=== PATIENT | male | born 1985 | race Caucasian/White ===

== ENCOUNTER 2016-11-26 15:23 | Inpatient (IN) | payer BC, OTHER ==
[~2016-11-26] VITALS: Ht 188 cm; Wt 88.9 kg
--- NOTE | 2016-11-26 18:14 | NUR ---
Intake Assessment; Patient is a 31 year old male AOX4, presented to [facility] to detoxify from ETOH. Patient appears anxious, nervous, tremors to touch with flushed face. Patient's admitting vital signs are as follows; BP 125/81, HR 100, Temperature 97.8, SPO2 98%, complains of lower back pain rated 5/10. Patient denies any allergies or any history of seizures. Educated patient regarding unit protocols and policies, patient verbalized understanding. Will continue with further assessment when patient is up on the unit.
[2016-11-26] MEDS ORDERED: LOPERAMIDE HCL 2 MG CAPSULE PO PRN ×2 (18:45)
[2016-11-26] MEDS ORDERED: LORAZEPAM 2 MG/1 ML VIAL IM PRN (18:45)
[2016-11-26] MEDS ORDERED: NICOTINE POLACRILEX 4 MG GUM-PK OF TEN BC PRN (18:45)
[2016-11-26] MEDS ORDERED: MIRALAX 17 GM POWD.PACK PO PRN (18:45)
[2016-11-26] MEDS ORDERED: NICOTINE 14 MG/24HR PATCH TD PRN (18:45)
[2016-11-26] MEDS ORDERED: LORAZEPAM 1 MG TABLET PO PRN (18:45)
[2016-11-26] MEDS ORDERED: DICYCLOMINE HCL 20 MG TABLET PO PRN (18:45)
[2016-11-26] MEDS ORDERED: ONDANSETRON 4 MG/2 ML VIAL IM PRN (18:45)
[2016-11-26] MEDS ORDERED: MAG HYDROX/AL HYDROX/SIMETH 30 ML LIQUID UDC PO PRN (18:45)
[2016-11-26] MEDS ORDERED: THIAMINE HCL 200 MG/2 ML VIAL IM ONE (18:45)
[2016-11-26] MEDS ORDERED: ONDANSETRON ODT 4 MG TAB.RAPDIS SL PRN (18:45)
[2016-11-26] MEDS ORDERED: MAGNESIUM HYDROXIDE 30 ML LIQUID UDC PO PRN (18:45)
--- NOTE | 2016-11-26 19:00 | NUR ---
End of shift note; Detailed report endorsed to night nurse for further admission assessment. Met all patient's needs.
--- NOTE | 2016-11-26 19:00 | NUR ---
ADMISSION NOTE New patient is a 31 year old male admitted to [facility] on 12/17/2016 at 1830 for medically supervised safety withdrawal from Alcohol. Patient reports NKA. Patient placed on Full Code, regular Diet, Fall and Seizures Precautions. Patient denies a history of withdrawal-induced seizures. Past Medical History: Anxiety, Depression, Bipolar Disorder, Alcohol use disorder, Chronic Tobacco Use Disorder. Past Surgical History: Tonsillectomy in 2003. Patient reports "I do not have PCP". Pre-assessment completed in intake by day shift nurse. Patient provided UDS and lab tests at this time. Patient is ambulatory with steady gate, stable, A&Ox4, speech is clear. Height: 74 in, Weight:196 lbs by standing scale. VS upon admission: T: 98.4; BP: 125/81; HR: 104; RR:18; RA O2 SAT: 96%. Patient c/o blow back pain: "5/10". CIWA 9. The patient presented with anxiety, agitation, nervousness, tremors that can be felt,, body aches, mild headache, diaphoresis, restless legs, and fatigue. Patient denies SI/HI. Upon initial assessment, patient's Respirations unlabored and even. Patient denies SOB and chest pain. Lungs Sounds are clear bilaterally. Bowel Sounds active in all x4 quadrants. Abdomen is soft and non-tender. PERRLA, brisk capillary refill, video operator equal and strong. Skin is intact warm and dry to touch. Patient reports the following Substances Use: 1 ."Alcohol PO since 2003. Patient reports "drink 4 pints of Vodka every day last month. Last used 2 pints of Vodka today, on11/26/2016 @1600. Longest sober period was 3 months since 07/2016 to 10/2016". 2. "Carmichaels PO on 11/26/2016 @1600. Patient reports it was only first time". Patient "unable recalls dosage". Patient reports smoking cigarettes :"1 pack = 20 cigarettes every day". Smoking Cessations Education provided. Patient returned his knowledge back by verbalized understanding. Treatment History: " [facility] for ninety days in the July, to September,". Home Medications Reconciliation done. Patient [facility] to his room[facility] Call Light[facility] Encourage fluids as tolerated. Encourage to attend activities groups. All needs met. Safety measures on place. Call light within reach, bed in lowest position and locked, padded rails up bilaterally rails up bilaterally. Will continue to monitor closely.
[2016-11-26 19:06] LABS: *AMPHETAMINE, URINE NEGATIVE (NEGATIVE); *BARBITURATE, URINE NEGATIVE (NEGATIVE); *CANNABINOID, URINE NEGATIVE (NEGATIVE); *COCCAINE, URINE NEGATIVE (NEGATIVE); *OPIATE, URINE POSITIVE (NEGATIVE); *PHENCYCLIDINE SCREEN,URINE NEGATIVE (NEGATIVE)
[2016-11-26 20:00] VITALS: BP 132/78
[2016-11-26] MEDS: IBUPROFEN 400 MG TABLET PO PRN (20:07)
[2016-11-26] MEDS: diphenhydrAMINE 50 MG CAPSULE PO PRN (20:07)
--- NOTE | 2016-11-26 20:07 | NUR ---
PRN MOTRIN 400 MG 1 TAB PO ADMINISTRATION Patient c/o low back pain. Patient reports pain level "6/10". PRN Motrin 400 mg 1 tab PO administrated with full glass of water as ordered. Patient tolerated well. All needs met. Safety measures on place. Call light within reach, bed in lowest position and locked, padded rails up bilaterally rails up bilaterally. Will continue to monitor closely.
--- NOTE | 2016-11-26 20:07 | NUR ---
PRN BENADRYL 50 MG 1 CAP PO ADMINISTRATION Patient c/o insomnia. PRN Benadryl 50 mg 1 capsule PO administrated with full glass of water as ordered. Patient tolerated well. All needs met. Safety measures on place. Call light within reach, bed in lowest position and locked, padded rails up bilaterally rails up bilaterally. Will continue to monitor closely.
[2016-11-26] MEDS ORDERED: LORAZEPAM 1 MG TABLET PO ONE (21:00)
[2016-11-26 21:07] LABS: BASOPHILS % (AUTO) 0.3 % (0.0-2.0); EOSINOPHILS % (AUTO) 0.1 % (0.0-7.0); HEMATOCRIT 42.5 % (40-50); LYMPHOCYTES # (AUTO) 1.7 K/UL (0.8-4.8); LYMPHOCYTES % (AUTO) 15.4 % (20.5-51.5); MEAN CORPUSCULAR HEMOGLOBIN 30.4 UUG (27.0-31.0); MEAN CORPUSCULAR HGB CONC 35 g/dL (32.0-37.0); MEAN CORPUSCULAR VOLUME 86.3 FL (82.0-92.0); MONOCYTES # (AUTO) 0.4 K/UL (0.1-1.30); MONOCYTES % (AUTO) 3.7 % (0.0-11.0); NEUTROPHILS % (AUTO) 80.5 % (38.5-71.5); PLATELET COUNT (AUTO) 237 K/UL (150-450); RED BLOOD CELL COUNT(AUTO) 4.92 MIL/UL (4.7-6.1); WHITE BLOOD COUNT (AUTO) 11.1 K/UL (4.0-11.2)
--- NOTE | 2016-11-26 21:07 | NUR ---
RE-ASSESSMENT Patient is sleeping. Respirations even and unlabored. RR 14. PRN Benadryl 50 mg 1 cap PO administrated @2006 for insomnia was effective. All needs met. Safety measures on place. Call light within reach, bed in lowest position and locked, padded rails up bilaterally rails up bilaterally. Will continue to monitor closely.
--- NOTE | 2016-11-26 21:07 | NUR ---
RE-ASSESSMENT Patient is sleeping. Respirations even and unlabored. RR 14. PRN Motrin 400 mg 1 tab PO administrated to patient @2006 for low back pain was effective. All needs met. Safety measures on place. Call light within reach, bed in lowest position and locked, padded rails up bilaterally rails up bilaterally. Will continue to monitor closely.
[2016-11-26 21:13] LABS: BILIRUBIN,TOTAL 0.3 mg/dL (0.2-1.0); CREATININE 1.1 mg/dL (0.6-1.3); MAGNESIUM 1.9 mg/dL (1.8-2.4); POTASSIUM 3.9 mmol/L (3.5-5.1); TOTAL PROTEIN, SERUM 7.3 g/dL (6.4-8.2)
[2016-11-26] MEDS ORDERED: HYDR-3326 PO (21:59)
[2016-11-26] MEDS ORDERED: BUPR300T52 PO ×2 (21:59)
[2016-11-27] VITALS: BP 119/72
[2016-11-27 04:00] VITALS: BP 115/80
--- NOTE | 2016-11-27 06:48 | NUR ---
END OF SHIFT New patient is a 31 year old male admitted to [facility] on 12/17/2016 for Alcohol dependence. Patient reports NKA. Patient is on Full Code, Regular Diet, Fall and Seizures Precautions. Patient denies a history of withdrawal-induced seizures. PMH: Anxiety, Depression, Bipolar Disorder, Alcohol use disorder, Chronic Tobacco Use Disorder. Past Surgical History: Tonsillectomy in 2003. Last VS @0400: T: 98.0; BP: 115/80; HR: 86; RR:12; RA O2 SAT: 99%. Pain level: "0/10". Patient denies SI/HI. Respirations unlabored and even. Abdomen is soft and non-tender. Skin is intact, warm and dry to touch. CIWA taken when patient's alert during the night. Last CIWA 4 @0400. Patient denies SI/HI. PRN Motrin 400 mg 1 tab PO administrated to patient @2006 for low back pain, and PRN Benadryl 50 mg 1 cap PO administrated @2006 for insomnia were effective. Patient slept 9 hours, intake 582 ml, voided x2. Encourage fluids as tolerated. All needs met. Safety measures on place. Call light within reach, bed in lowest position and locked, padded rails up bilaterally rails up bilaterally. Patient endorsed by day shift nurse.
--- NOTE | 2016-11-27 07:30 | NUR ---
START OF SHIFT Rcvd endorsement from ongoing nurse, client is in room, he is a/ox4, he presents with anxious mood, flat affect, tremors felt, not observed, and flushed face. He reports anxiety, difficulty sleeping, restless legs, decreased appetite, fatigue, and chills. Encourage client to attend group therapy for skills to maintain sober, he verbalized understanding and said, "I really don't feel up to it, but tomorrow I'll try." Encourage client to increase PO fluid intake as tolerated to facilitate detox. Client is a 31 yo male, admitted to [facility] for withdrawal from alcohol. He is on 5 day Ativan taper, first dose today @ 0900. Last CIWA 4 @ 0400. PRN Motrin for low back pain, Benadryl for inability to sleep, noted effective, client slept 9 hrs. Client reported NKA, full code, regular diet. Client denies a hx of withdrawal-induced seizure. Side rails x 2 up/padded, bed in lowest/lock position. Call light within reach.
[2016-11-27 08:00] VITALS: BP 126/69
[2016-11-27] MEDS: LORAZEPAM 1 MG TABLET PO SCH ×4 (08:33→20:17)
[2016-11-27] MEDS: FOLIC ACID 1 MG TABLET PO SCH (08:33)
[2016-11-27] MEDS: IBUPROFEN 400 MG TABLET PO PRN ×2 (08:33→20:17)
[2016-11-27] MEDS: MULTIVITAMINS,THERAPEUTIC TABLET PO SCH (08:33)
[2016-11-27] MEDS: THIAMINE HCL 100 MG TABLET PO SCH (08:33)
--- NOTE | 2016-11-27 08:33 | NUR ---
TB test administered ID to left forearm, client tolerated well.
[2016-11-27] MEDS ORDERED: TUBERCULIN,PURIF.PROT.DERIV. 5 TU/0.1 ML TEST ID ONE (09:00)
[2016-11-27] MEDS ORDERED: ARIP15TA3 PO (12:12)
--- NOTE | 2016-11-27 12:17 | NUR ---
Nursing note Mom called inquiring if client is taking his Abilify 15mg daily for dual diagnosis bipolar disorder and schizophrenia, she said, "He stopped taking it because of side effects like gain weight." Client confirmed that he used to take at home Abilify 15mg PO daily. Dr. Johnston made aware and he stated "I will talk with the client."
[2016-11-27 12:55] VITALS: BP 133/82
--- NOTE | 2016-11-27 13:45 | NUR ---
Activity Group Notes: Client did not attend.
[2016-11-27] MEDS: buPROPion XL 150 MG TAB.SR.24H PO SCH (13:50)
[2016-11-27 16:55] VITALS: BP 123/76
--- NOTE | 2016-11-27 18:51 | NUR ---
END OF SHIFT Endorsed client to incoming nurse, Client is a 31 yo male, admitted to [facility] for withdrawal from alcohol. He is on 5 day Ativan taper, tolerating well with no ASE, and management of withdrawal symptoms, such as anxiety, tremors, irritability. Last CIWA 8 @ 1600. Client was not compliant with group therapy. Client consumes 100% of meals, plus snacks. Adequate fluid PO intake 3113mL. Client reported NKA, full code, regular diet. Client denies a hx of withdrawal-induced seizure. Side rails x 2 up/padded, bed in lowest/lock position. Call light within reach.
--- NOTE | 2016-11-27 18:51 | NUR ---
START OF SHIFT NOTE Patient is a 31 year old male admitted to [facility] on 12/17/2016 for Alcohol dependence. Patient reports NKA. Patient is on Full Code, Regular Diet, Fall and Seizures Precautions. Patient denies a history of withdrawal-induced seizures. PMH: Anxiety, Depression, Bipolar Disorder, Alcohol use disorder, Chronic Tobacco Use Disorder. Past Surgical History: Tonsillectomy in 2003. Upon endorsement patient is in his room alert and oriented x4, with stable gate. Speech is clear and soft. Patient is cooperative. [facility]. VS @0400: T: 98.4; BP: 136/84; HR: 96; RR:14; RA O2 SAT: 96%. Patient reports low back pain level: "5/10". Patient denies SI/HI. Respirations unlabored and even. Patient denies SOB and chest pain. Lungs Sounds are clear bilaterally. Bowel Sounds active in all x4 quadrants. Abdomen is soft and non-tender. PERRLA, brisk capillary refill, senior automation engineer equal and strong. Skin is intact, warm and dry to touch. Encourage fluids as tolerated. Encourage to attend activities groups. All needs met. Safety measures on place. Call light within reach, bed in lowest position and locked, padded rails up bilaterally rails up bilaterally. Patient endorsed by day shift nurse. Report received. Will continue to monitor closely. Addendum: 11/28/16 at 1935 by KT MARIE RN VS @1600.
[2016-11-27 20:00] VITALS: BP 136/84
[2016-11-27] MEDS: diphenhydrAMINE 50 MG CAPSULE PO PRN (20:17)
--- NOTE | 2016-11-27 20:17 | NUR ---
PRN MOTRIN 400 MG 1 TAB PO AND PRN BENADRYL 1 CAP PO ADMINISTRATION Patient c/o low back pain and insomnia. Patient reports pain level "5/10". PRN Motrin 400 mg 1 tab PO for pain and PRN Benadryl 50 mg 1 cap PO for insomnia administrated with full glass of water as ordered. Patient tolerated well. All needs met. Patient has 1:1 sitter at bedside for safety/unstable gait. Call light within reach, bed in lowest position and locked, padded rails up bilaterally rails up bilaterally. Will continue to monitor closely.
[2016-11-27] MEDS ORDERED: ARIPIPRAZOLE 5 MG TABLET PO SCH (21:00)
--- NOTE | 2016-11-27 21:17 | NUR ---
RE-ASSESSMENT Patient is sleeping. Respirations even and unlabored. RR 14. PRN Motrin 400 mg 1 tab PO for pain, and PRN Benadryl 50 mg 1 cap PO for insomnia administrated to patient @2017 were effective. All needs met. Safety measures on place. Call light within reach, bed in lowest position and locked, padded rails up bilaterally rails up bilaterally. Will continue to monitor closely.
[2016-11-28] VITALS (8 sets, daily range): BP systolic 106–142; BP diastolic 56–94
[2016-11-28] MEDS: LORAZEPAM 1 MG TABLET PO PRN ×2 (00:01→02:07)
--- NOTE | 2016-11-28 00:01 | NUR ---
PRN ATIVAN 1MG 1 TAB PO ADMINISTRATION Patient c/o increased anxiety. Patient's assesses. PRN Ativan 1 mg 1 tab PO for CIWA 7 administrated as ordered. Patient tolerated well. All needs met. Safety measures on place. Call light within reach, bed in lowest position and locked, padded rails up bilaterally rails up bilaterally. Will continue to monitor closely.
--- NOTE | 2016-11-28 01:01 | NUR ---
RE-ASSESSMENT JOSE 7. PRN Ativan 1 mg PO administrated @0001 was not effective. All needs met. Safety measures on place. Call light within reach, bed in lowest position and locked, padded rails up bilaterally rails up bilaterally. Will continue to monitor closely.
[2016-11-28] MEDS: HYDROXYZINE PAMOATE 25 MG CAPSULE PO PRN ×2 (01:08→08:07)
[2016-11-28] MEDS ORDERED: HYDROXYZINE PAMOATE 25 MG CAPSULE ONE (01:08)
--- NOTE | 2016-11-28 01:08 | NUR ---
PRN VISTARIL 25 MG 1 CAP PO ADMINISTRATION Patient c/o anxiety. CIWA 7. PRN Vistaril PO was discussed. Patient was educated for actions, aide effects, and adverse reactions of Vistaril PO. Patient returned knowledge back by verbalized understanding. PRN Vistaril 25 mg 1 cap PO for anxiety administrated with full glass of water as ordered. Patient tolerated well. All needs met. Safety measures on place. Call light within reach, bed in lowest position and locked, padded rails up bilaterally rails up bilaterally. Will continue to monitor closely.
--- NOTE | 2016-11-28 02:08 | NUR ---
RE-ASSESSMENT Patient c/o increased anxiety. CIWA 8. PRN Vistaril was non effective. All needs met. Safety measures on place. Call light within reach, bed in lowest position and locked, padded rails up bilaterally rails up bilaterally. Will continue to monitor closely.
--- NOTE | 2016-11-28 02:08 | NUR ---
PRN ATIVAN 1MG 1 TAB PO ADMINISTRATION Patient c/o increased anxiety. Patient's assesses. PRN Ativan 1 mg 1 tab PO for CIWA 8 administrated as ordered. Patient tolerated well. All needs met. Safety measures on place. Call light within reach, bed in lowest position and locked, padded rails up bilaterally rails up bilaterally. Will continue to monitor closely. Addendum: 11/28/16 at 0331 by KT MARIE RN PRN Ativan 1 mg 1 tab PO administrated for anxiety, for CIWA 7 @5102.
--- NOTE | 2016-11-28 03:08 | NUR ---
RE-ASSESSMENT PRN Ativan was effective. CIWA decreased from 8 to 4. All needs met. Safety measures on place. Call light within reach, bed in lowest position and locked, padded rails up bilaterally rails up bilaterally. Will continue to monitor closely.
--- NOTE | 2016-11-28 03:52 | NUR ---
PRN BENTYL 20 MG 1 TAB PO ADMINISTRATION. Patient c/o abdominal spasm and asked aid. PRN Bentyl 20 mg 1 tab PO for abdominal spasm administrated as ordered with full glass of water. Patient tolerated well. All needs met. Safety measures on place. Call light within reach, bed in lowest position and locked, padded rails up bilaterally rails up bilaterally. Will continue to monitor closely.
--- NOTE | 2016-11-28 04:52 | NUR ---
RE-ASSESSMENT Patient denies abdominal spasm at this time. PRN Bentyl 20 mg PO administrated @0352 was effective. All needs met. Safety measures on place. Call light within reach, bed in lowest position and locked, padded rails up bilaterally rails up bilaterally. Will continue to monitor closely.
--- NOTE | 2016-11-28 06:45 | NUR ---
END OF SHIFT NOTE: Patient is a 31 year old male admitted to [facility] on 12/17/2016 for Alcohol dependence. Patient reports NKA. Patient is on Full Code, Regular Diet, Fall and Seizures Precautions. Patient denies a history of withdrawal-induced seizures. PMH: Anxiety, Depression, Bipolar Disorder, Alcohol use disorder, Chronic Tobacco Use Disorder. Past Surgical History: Tonsillectomy in 2003. Last CIWA 4 @0400. CIWA taken when patient's alert during the night. Last VS @0500: T: 98.4; BP: 120/74; HR:94; RR:18; RA O2 SAT: 97%. Pain level: "0/10". Patient denies SI/HI. Respirations unlabored and even. Abdomen is soft and non-tender. Skin is intact, warm and dry to touch. Patient denies SI/HI. PRN Motrin 400 mg 1 tab PO administrated to patient @2017 for low back pain, and PRN Benadryl 50 mg 1 cap PO administrated @2017 for insomnia were effective. PRN Ativan 1 mg 1 tab PO administrated for anxiety for CIWA 7 @0001, and PRN Vistaril 25 mg 1 cap PO administrated for anxiety @0108 were non-effective. PRN Ativan 1 mg 1 tab PO administrated for anxiety, for CIWA 7 @0207 and PRN Bentyl 20 mg 1 tab PO for abdominal spasm @ 0352 were effective. Patient slept 1 hour 30 minutes, intake 796 ml, voided x1,. Encourage fluids as tolerated. All needs met. Safety measures on place. Call light within reach, bed in lowest position and locked, padded rails up bilaterally rails up bilaterally. Patient endorsed by day shift nurse.
--- NOTE | 2016-11-28 07:30 | NUR ---
START OF SHIFT Pt 31 y/o male admitted for etoh dependence. Pt received walking around hallway. Pt alert and oriented to name, place, and time. Perrla. Skin warm and slightly moist to touch. Respirations even and unlabored. Pt appears slightly disheveled. Pt anxious this morning, observed pacing and with pressured speech this morning. Also noted that pt was jumping topics quickly during conversation. It was reported that pt slept for 1 hour last night. Bed on lowest position with side rails x2 up for safety. Call light within reach. No distress noted at this time.
[2016-11-28 08:06] LABS: HEPATITIS B SURFACE AG Negative (Negative)
[2016-11-28] MEDS: MULTIVITAMINS,THERAPEUTIC TABLET PO SCH (08:07)
[2016-11-28] MEDS: FOLIC ACID 1 MG TABLET PO SCH (08:07)
[2016-11-28] MEDS: CLONIDINE HCL 0.1 MG TABLET PO PRN (08:07)
[2016-11-28] MEDS: LORAZEPAM 1 MG TABLET PO SCH ×3 (08:07→20:36)
[2016-11-28] MEDS: THIAMINE HCL 100 MG TABLET PO SCH (08:07)
[2016-11-28] MEDS: IBUPROFEN 400 MG TABLET PO PRN (08:07)
[2016-11-28] MEDS: buPROPion XL 150 MG TAB.SR.24H PO SCH (08:08)
--- NOTE | 2016-11-28 08:12 | NUR ---
PRN Pt with nr=[id number]. Pt observed pacing in room and with pressured speech noted. Catapres po prn per MD orders noted and carried out.
--- NOTE | 2016-11-28 08:12 | NUR ---
JAZIEL PATTERSON Pt observed walking around the unit in the hallways. No distress noted at this time. Pt also states pain 04/04. xo=075/78
--- NOTE | 2016-11-28 08:13 | NUR ---
PRN Pt observed pacing in room and with pressured speech noted. Vistaril po prn per MD order given and tolerated well.
--- NOTE | 2016-11-28 08:14 | NUR ---
PRN Pt with c/o lower back pain. Motrin po prn per MD order given and tolerated well.
[2016-11-28] MEDS: GABAPENTIN 300 MG CAPSULE PO SCH ×2 (14:04→20:36)
[2016-11-28] MEDS ORDERED: LORAZEPAM 1 MG TABLET PO PRN ×2 (15:00)
--- NOTE | 2016-11-28 19:07 | NUR ---
START OF SHIFT NOTE Patient is a 31 year old male presenting to [facility] for Alcohol dependence. Patient continue Ativan Taper with tolerated well without ASE. Patient reports NKA. Patient is on Full Code, Regular Diet, Fall and Seizures Precautions. Patient denies a history of withdrawal-induced seizures. Patient received PRN Medications during day per report of outgoing day shift nurse: PRN Clonidine PO 0.1 mg 1 tab @0807, PRN Vistaril 25 mg 1 tab PO for anxiety@0807, and PRN Motrin PO 400 mg 1 tab for low back pain @0807. Patient remains compliant with treatment, medications, and diet regime. Upon endorsement patient is in his room alert and oriented x4, with stable gate. Speech is clear and soft. Patient is cooperative. Patient denies SI/HI. CIWA 7. Respirations unlabored and even. Patient denies SOB and chest pain. Lungs Sounds are clear bilaterally. Bowel Sounds active in all x4 quadrants. Abdomen is soft and non-tender. PERRLA, brisk capillary refill, commercial housekeeper equal and strong. Skin is intact, warm and dry to touch. Encourage fluids as tolerated. Encourage to attend activities groups. All needs met. Safety measures on place. Call light within reach, bed in lowest position and locked, padded rails up bilaterally rails up bilaterally. Patient endorsed by day shift nurse. Report received. Will continue to monitor closely.
--- NOTE | 2016-11-28 19:07 | NUR ---
END OF SHIFT Pt 31 y/o male admitted for etoh dependence. Pt alert and oriented to name, place, and time. Perrla. Skin warm and slightly moist to touch. Respirations even and unlabored. Pt appears slightly disheveled. Pt with periods of anxiety this morning. Pt did not attend group activity. Pt was seen by MD today. Pt medication compliant and tolerated well. No ASE noted. Bed on lowest position with side rails x2 up for safety. Call light within reach. No distress noted at this time.
[2016-11-28] MEDS: QUETIAPINE FUMARATE 200 MG TABLET PO SCH (20:36)
[2016-11-29] VITALS: BP 113/64
[2016-11-29 04:00] VITALS: BP 121/70
--- NOTE | 2016-11-29 04:08 | NUR ---
PRN ATIVAN 1MG 1 TAB PO ADMINISTRATION Patient c/o increased anxiety. PRN Ativan 1 mg 1 tab PO for CIWA 8 administrated as ordered. Patient tolerated well. All needs met. Safety measures on place. Call light within reach, bed in lowest position and locked, padded rails up bilaterally rails up bilaterally. Will continue to monitor closely.
--- NOTE | 2016-11-29 05:08 | NUR ---
RE-ASSESSMENT Patient is sleeping. Respirations even and unlabored. RR 15. PRN Ativan 1 mg 1 tab PO administrated to patient @0408 was effective. All needs met. Safety measures on place. Call light within reach, bed in lowest position and locked, padded rails up bilaterally rails up bilaterally. Will continue to monitor closely.
--- NOTE | 2016-11-29 06:57 | NUR ---
END OF SHIFT NOTE: Patient is a 31 year old male presenting to [facility] for Alcohol dependence. Patient continue Ativan Taper, tolerated without ASE. Patient reports NKA. Patient is on Full Code, Regular Diet, Fall and Seizures Precautions. Patient denies a history of withdrawal-induced seizures. PMH: Anxiety, Depression, Bipolar Disorder, Alcohol use disorder, Chronic Tobacco Use Disorder. Past Surgical History: Tonsillectomy in 2003. Last CIWA 4 @0400. CIWA taken when patient's alert during the night. Last VS @0500: T: 98.4; BP: 120/74; HR:94; RR:18; RA O2 SAT: 97%. Pain level: "0/10". Patient denies SI/HI. Respirations unlabored and even. Abdomen is soft and non-tender. Skin is intact, warm and dry to touch. Patient denies SI/HI. PRN Ativan 1 mg 1 tab PO administrated @ 0408 for CIWA 8, and was effective. Patient slept 9 hour 45 minutes, intake 1,000 ml, voided x2. Encourage fluids as tolerated. All needs met. Safety measures on place. Call light within reach, bed in lowest position and locked, padded rails up bilaterally rails up bilaterally. Report given. Patient endorsed to day shift nurse in stable condition.
--- NOTE | 2016-11-29 07:30 | NUR ---
START OF SHIFT Pt 31 y/o male admitted for etoh dependence. Pt received in room on bed with eyes closed resting, but easily arousable to name. Pt alert and oriented to name, place, and time. Perrla. Skin warm and slightly moist to touch. Respirations even and unlabored. It was reported that pt slept for 9 hour last night. Bed on lowest position with side rails x2 up for safety. Call light within reach. No distress noted at this time.
[2016-11-29 08:14] VITALS: BP 131/78
[2016-11-29] MEDS: buPROPion XL 150 MG TAB.SR.24H PO SCH (08:30)
[2016-11-29] MEDS: GABAPENTIN 300 MG CAPSULE PO SCH ×3 (08:31→20:13)
[2016-11-29] MEDS: LORAZEPAM 1 MG TABLET PO SCH ×4 (08:31→20:13)
[2016-11-29] MEDS: FOLIC ACID 1 MG TABLET PO SCH (08:31)
[2016-11-29] MEDS: THIAMINE HCL 100 MG TABLET PO SCH (08:31)
[2016-11-29] MEDS: MULTIVITAMINS,THERAPEUTIC TABLET PO SCH (08:31)
[2016-11-29] MEDS: CLONIDINE HCL 0.1 MG TABLET PO PRN ×2 (12:12→18:53)
[2016-11-29] MEDS: IBUPROFEN 400 MG TABLET PO PRN ×2 (12:12→21:14)
[2016-11-29] MEDS: HYDROXYZINE PAMOATE 25 MG CAPSULE PO PRN ×2 (12:12→18:52)
--- NOTE | 2016-11-29 12:16 | NUR ---
PRN Pt with pressured speech noted and appears restless. Vistaril po prn per MD order given and tolerated well.
--- NOTE | 2016-11-29 12:16 | NUR ---
PRN Pt states has back pain 10/02. Motrin po prn per MD order given and tolerated well.
--- NOTE | 2016-11-29 12:17 | NUR ---
PRN Pt still restless. IN=[id number]. Catapres po prn per MD order given and tolerated well.
[2016-11-29 12:30] VITALS: BP 123/92
--- NOTE | 2016-11-29 13:17 | NUR ---
JAZIEL PATTERSON Pt observed in room on bed with eyes closed resting, but easily arousable to name. No distress noted at this time.
--- NOTE | 2016-11-29 13:17 | NUR ---
PRN EVAL Pt states pain 5/10.
[2016-11-29] MEDS: METHOCARBAMOL 750 MG TABLET PO PRN (14:40)
--- NOTE | 2016-11-29 14:46 | NUR ---
PRN Pt with c/o back aches 10/02. Robaxin po prn per MD order given and tolerated well.
--- NOTE | 2016-11-29 15:46 | NUR ---
PRN EVAL Pt observed in bed watching television. Pt states pain 10.
[2016-11-29 16:00] VITALS: BP 133/84
--- NOTE | 2016-11-29 17:05 | NUR ---
therapist encouraged client to attend group today. Client agreed to come to group
[2016-11-29] MEDS: GUAIFENESIN/DEXTROMETHORPHAN 5 ML UDC PO PRN (17:24)
--- NOTE | 2016-11-29 17:24 | NUR ---
PRN Pt with c/o cough. Robitussin po prn per MD order given and tolerated well.
--- NOTE | 2016-11-29 18:24 | NUR ---
PRN EVAL Pt observed in room. No cough noted.
--- NOTE | 2016-11-29 18:26 | NUR ---
END OF SHIFT Pt 31 y/o male admitted for etoh dependence. Pt alert and oriented to name, place, and time. Perrla. Skin warm and slightly moist to touch. Respirations even and unlabored. Pt with periods of anxiety this morning. Pt observed mostly isolative to room today. Pt did not attend group activity. Pt was seen by MD today. Pt medication compliant and tolerated well. No ASE noted. Bed on lowest position with side rails x2 up for safety. Call light within reach. No distress noted at this time.
--- NOTE | 2016-11-29 18:58 | NUR ---
PRN Pt states feels anxious. Pressured speech noted. Vistaril po prn per MD order given and tolerated well.
--- NOTE | 2016-11-29 18:58 | NUR ---
PRN Pt states feels nauseous. Zofran odt prn per MD order given and tolerated well.
--- NOTE | 2016-11-29 18:59 | NUR ---
PRN Pt states feels very anxious. xo=060/92. Catapres po prn per MD order given and tolerated well.
--- NOTE | 2016-11-29 19:30 | NUR ---
START OF SHIFT Patient is a 31-year-old male admitted on 11/26/16 for ETOH dependence. Patient reported drinking 4 pints of vodka every day for the last month. Patient reported last drinking 2 pints at 1600 on 11/26/16 prior to admission. Past medical history includes anxiety, depression, and bipolar disorder. Patient has history of alcohol dependence and tobacco chronic use disorder. Patient is FULL code, NKA and on regular diet. Patient is currently on a 5 day Ativan taper, tolerating well. Upon assessment, patient is awake and oriented x4, PERRLA, skin intact and warm to touch. Patient reports some tingling of lower extremities, mild nausea, mild headache, and lower back pain. Patients respirations are even and unlabored. Patient is on fall and seizure precautions, with no history of seizure. Bed in lowest position, call light within reach. Will continue to monitor.
--- NOTE | 2016-11-29 19:53 | NUR ---
PRN REASSESSMENT PRN Clonidine, Vistaril and Zofran reassessment. PRN medications partially effective. Patient states that nausea has slightly improved. Comfort measures in place. Needs met. Will continue monitor. Addendum: 11/29/16 at 2054 by JUDY NUNEZ LVN This is reassessment for PRN Clonidine, Vistaril and Zofran that was administered during day shift.
[2016-11-29 20:08] VITALS: BP 134/78
[2016-11-29] MEDS: QUETIAPINE FUMARATE 200 MG TABLET PO SCH (20:14)
--- NOTE | 2016-11-29 21:14 | NUR ---
PRN MOTRIN Patient complained of lower back pain 5/10. PRN Motrin given PO. Will continue to monitor, will reassess for effectiveness within 1 hour.
--- NOTE | 2016-11-29 22:14 | NUR ---
PRN MOTRIN REASSESSMENT PRN Motrin effective, patient states lower back pain decrease to 2/10 from 5/10. Patient needs are met, pt resting in bed; respirations even and unlabored. Safety measures in place, call light within reach. Will continue to monitor.
[2016-11-30] VITALS: BP 119/67
[2016-11-30 04:02] VITALS: BP 117/73
--- NOTE | 2016-11-30 04:02 | NUR ---
CIWA DEFERRED CIWA deferred, patient is asleep, unable to score. To assess while patient is awake as ordered. Safety measures in place, will continue to monitor.
--- NOTE | 2016-11-30 07:12 | NUR ---
END OF SHIFT Patient is a 31-year-old male admitted on 11/26/16 for ETOH dependence. Past medical history includes anxiety, depression, and bipolar disorder. Patient has history of alcohol dependence and tobacco chronic use disorder. Patient is FULL code, NKA and on regular diet. Patient is currently on a 5 day Ativan taper, tolerating well. Last CIWA score was PRN Motrin 400mg was given PO at 2114 for lower back pain, 5/10 as reported by patient; effective. Upon reassessment, patient reported 2/10 for lower back pain. Patient slept total of 5.5hrs, intake 1946mL, void x2, stool x1. Patients respirations are even and unlabored. Patient is on fall and seizure precautions, with no history of seizure. Bed in lowest position, call light within reach. Will endorse to day shift.
--- NOTE | 2016-11-30 07:13 | NUR ---
Start of Shift Notes; Received patient in his room. Alert and oriented x 4. Verbally responsive. Able to make needs known. Respirations even and unlabored. No SOB noted. Skin warm and dry to touch. Abdomen soft and non-distended. BS (+) in all 4 quadrants. No complains of N/V/D or constipation noted. Voids independently. Ambulatory ad jean-paul with steady gait. Patient is a 31 year old male admitted for ETOH dependence who was placed on a 5-day Ativan taper as ordered. No adverse reactions noted. Has past medical hx of anxiety, depression and bipolar disorder. NKA. FULL CODE. Regular diet. On fall and seizure precautions. . Educated patient on his current plan of care for the day and his medication regimen. Encouraged oral fluid intake and encouraged group participation to learn new skills to prevent relapse. Will continue to monitor closely.
[2016-11-30 08:00] VITALS: BP 117/69
[2016-11-30] MEDS: LORAZEPAM 1 MG TABLET PO SCH ×2 (08:59→20:36)
[2016-11-30] MEDS: FOLIC ACID 1 MG TABLET PO SCH (08:59)
[2016-11-30] MEDS: buPROPion XL 150 MG TAB.SR.24H PO SCH (08:59)
[2016-11-30] MEDS: GABAPENTIN 300 MG CAPSULE PO SCH ×3 (08:59→20:37)
[2016-11-30] MEDS: THIAMINE HCL 100 MG TABLET PO SCH (08:59)
[2016-11-30] MEDS: BENZOCAINE/MENTH/CETYLPYRD LOZENGE MM PRN (08:59)
[2016-11-30] MEDS: HYDROXYZINE PAMOATE 25 MG CAPSULE PO PRN (08:59)
[2016-11-30] MEDS: MULTIVITAMINS,THERAPEUTIC TABLET PO SCH (08:59)
--- NOTE | 2016-11-30 09:00 | NUR ---
Vistaril 25 mg PO/Cepacol given: Patient noted with complain of anxiety. Pulse 92 while resting. Noted with mild sweats. Also complains of sore throat. Non-pharmacological interventions provided but ineffective. Medicated patient with Vistaril 25 mg PO and Cepacol sore throat as ordered. Will monitor for effectiveness.
--- NOTE | 2016-11-30 10:00 | NUR ---
Re-assessment: Per patient, PRN Vistaril was mildly effective in relieving anxiety and Cepacol was effective in relieving sore throat.
[2016-11-30 12:00] VITALS: BP 117/73
[2016-11-30] MEDS ORDERED: HYDROXYZINE PAMOATE 25 MG CAPSULE PO PRN (13:45)
[2016-11-30] MEDS: IBUPROFEN 400 MG TABLET PO PRN (14:12)
--- NOTE | 2016-11-30 14:12 | NUR ---
Motrin 400 mg PO given: Patient noted with complain of low back pain 06/02. Non-pharmacological interventions were provided but ineffective. Medicated patient with Motrin 400 mg PO as ordered. Will monitor for effectiveness.
--- NOTE | 2016-11-30 15:12 | NUR ---
Re-assessment: Per patient, PRN Motrin 400 mg PO was mildy effective in reducing low back pain. PL 03/04.
--- NOTE | 2016-11-30 15:43 | NUR ---
Endorsed care: Endorsed care to receiving nurse at this time. All pertinent information discussed.
[2016-11-30 16:00] VITALS: BP 125/77
--- NOTE | 2016-11-30 17:56 | NUR ---
End of Shift Notes: Patient continues to be on 5-day Ativan taper as ordered. No adverse reactions noted. Taper tolerated well. VS monitored closely. No significant abnormalities noted. Withdrawal symptoms were closely monitored. Per patient, Ativan has been helping him with his withdrawal symptoms. Noted with episodes of asking for more medications, specifically Ativan. Education provided and verbalized fair understanding. PRN Vistaril given at 0900 for complain of nervousness and anxiety and PRN Cepacol given for complain of mild sore throat. At 1412, patient complained of 4/10 low back pain. Medicated patient with Motrin 400 mg PO with help. Last CIWA 6. Compliant with care and treatment. Requires encouragement to attend group and participate in activities. All needs met and attended. Will continue to monitor the patient and endorse to incoming nurse for continuity of care.
[2016-11-30 20:00] VITALS: BP 135/89
--- NOTE | 2016-11-30 20:00 | NUR ---
Start of Shift Pt is a 31 year old male admitted for ETOH dependence, placed on 5 day Ativan taper. Pt reported consuming Vodka 4 pints/daily. Pt also reported using [place] PO 1 tab once on 11/26/16. PMH: Anxiety, Depression, Bipolar Disorder, Alcohol Dependence and tobacco chronic use disorder. NKA, regular diet, fall/seizure precautions and full code. Upon assessment, pt presents with anxiety, tremors felt upon touch, reports feeling mild chills and body aches, skin is clammy, respirations even/unlabored, denies SOB/chest pain, denies n/v/d, medications due. Safety measures in place, call light within reach, side rails up x2, bed locked and in low position. Will continue to monitor.
[2016-11-30] MEDS: QUETIAPINE FUMARATE 200 MG TABLET PO SCH (20:44)
[2016-12-01] VITALS: BP 105/81
--- NOTE | 2016-12-01 | NUR ---
Vital Signs BP 105/81, pulse 91, resp 18, SpO2 95% room air, temp 98, no pain CIWA deferred due to pt sleeping, to assess while pt is awake as ordered. Safety measures in place. Will continue to monitor.
[2016-12-01 04:00] VITALS: BP 121/85
--- NOTE | 2016-12-01 04:00 | NUR ---
Vital Signs BP 121/85, pulse 82, resp 16, SpO2 99% room air, temp 97.9, no pain CIWA deferred due to pt sleeping, to assess while pt is awake as ordered. Safety measures in place. Will continue to monitor.
--- NOTE | 2016-12-01 07:00 | NUR ---
End of Shift Pt is a 31 year old male admitted for ETOH dependence, placed on 5 day Ativan taper. Pt reported consuming Vodka 4 pints/daily. Pt also reported using [place] PO 1 tab once on 11/26/16. PMH: Anxiety, Depression, Bipolar Disorder, Alcohol Dependence and tobacco chronic use disorder. NKA, regular diet, fall/seizure precautions and full code. During shift, pt presented with anxiety, tremors felt upon touch, reported feeling mild chills and body aches, skin clammy - scheduled taper medications administered, effective in monitoring s/s of withdrawal, CIWA 5. No PRN medications administered during shift. Pt slept for 7 hours, intake of 2500 ml PO, voids x3 and stool x2. Safety measures in place, call light within reach, side rails up x2, bed locked and in low position. Will continue to monitor.
--- NOTE | 2016-12-01 07:53 | NUR ---
START OF SHIFT NOTE: Received report from shift supervisor rn nurse. Pt is a 31 year old male admitted 11-26-16 for ETOH dependence, placed on 5 day Ativan taper. Tolerating well. Pt is alert and oriented X4. Color good, skin warm and dry. Respirations even and unlabored. Resting in bed. Safety precautions observed. Call light within reach. Will continue to monitor.
[2016-12-01 08:00] VITALS: BP 120/68
[2016-12-01] MEDS: THIAMINE HCL 100 MG TABLET PO SCH (09:00)
[2016-12-01] MEDS ORDERED: LORAZEPAM 1 MG TABLET PO SCH (09:00)
[2016-12-01] MEDS: GABAPENTIN 300 MG CAPSULE PO SCH (09:09)
[2016-12-01] MEDS: buPROPion XL 150 MG TAB.SR.24H PO SCH (09:09)
[2016-12-01] MEDS: MULTIVITAMINS,THERAPEUTIC TABLET PO SCH (09:09)
[2016-12-01] MEDS: FOLIC ACID 1 MG TABLET PO SCH (09:09)
--- NOTE | 2016-12-01 11:00 | NUR ---
Pt c/o sore throat
[2016-12-01 12:24] VITALS: BP 123/76
--- NOTE | 2016-12-01 13:32 | NUR ---
CIWA 9 still with major anxiety and fine tremors. Addendum: 12/01/16 at 1333 by CHRIS TRAVIS RN Dr. Elise mcneal
[2016-12-01] MEDS ORDERED: LORAZEPAM 1 MG TABLET PO ONE (13:45)
[2016-12-01] MEDS: GABAPENTIN 400 MG CAPSULE PO SCH ×2 (14:01→20:36)
[2016-12-01] MEDS: BENZOCAINE/MENTH/CETYLPYRD LOZENGE MM PRN (14:02)
--- NOTE | 2016-12-01 14:05 | NUR ---
Ativan 1mg po X1 given as ordered
--- NOTE | 2016-12-01 15:00 | NUR ---
Pt feels improved after Ativan X1
[2016-12-01] MEDS: ACETAMINOPHEN 325 MG TABLET PO PRN (16:42)
--- NOTE | 2016-12-01 16:45 | NUR ---
Pt c/o headache. Tylenol 650mg po prn given
--- NOTE | 2016-12-01 17:45 | NUR ---
Pt states headache improved after Tylenol.
[2016-12-01 17:56] VITALS: BP 123/76
--- NOTE | 2016-12-01 18:50 | NUR ---
END OF SHIFT NOTE: Report given to night coordinator nurse . Pt is a 31 year old male admitted 11-26-16 for ETOH dependence, placed on 5 day Ativan taper. Tolerating well. Dr. Olivares extended taper X 24hours. Pt is alert and oriented X4. Color good, skin warm and dry. Respirations even and unlabored. Vital signs have remained stable throughout shift. Pt received Tylenol 650mg po prn X1. Last CIWA 4 COWS 4 @ 1700. Resting in bed. Safety precautions observed. Call light within reach.
--- NOTE | 2016-12-01 19:30 | NUR ---
START OF SHIFT Pt is a 31 year old male admitted for ETOH dependence.Pt continues on 5 day Ativan taper as ordered and is tolerating well. Pt is alert and oriented X4. PMH of anxiety,depression and bipolar disorder.Per report, Pt received Tylenol 650mg po prn X1. Last CIWA 4 COWS 4 @ 1700. Received resting in bed in stable condition.All safety measures in place,call light kept with in reach, will continue to monitor.
[2016-12-01 20:00] VITALS: BP 131/82
[2016-12-01] MEDS: QUETIAPINE FUMARATE 200 MG TABLET PO SCH (20:35)
[2016-12-01] MEDS: LORAZEPAM 1 MG TABLET PO SCH (20:35)
[2016-12-02] VITALS: BP 115/70
[2016-12-02 04:00] VITALS: BP 121/78
--- NOTE | 2016-12-02 06:40 | NUR ---
END OF SHIFT Pt is a 31 year old male admitted for ETOH dependence.Pt continues on 5 day Ativan taper as ordered and is tolerating well. Pt is alert and oriented X4. PMH of anxiety,depression and bipolar disorder. Last CIWA 2 .Pt is resting in bed in stable condition.No PRN meds given this shift. Pt slept 7 hrs,fluid intake was 1047 mls,voided x 3,BM X 1.All safety measures in place,call light kept with in reach, will continue to monitor.
[2016-12-02 08:00] VITALS: BP 119/72
--- NOTE | 2016-12-02 08:00 | NUR ---
START OF SHIFT NOTE 31 year old male admitted 11/26/16 for ETOH substance abuse. ON 5 day ativan taper. NKA. Reg diet, full code. Hx anxiety, depression, Bipolar disorder. No history of seizure. Received report from night RN. No PRN medication given. Slept 7 hours. Last CIWA 2 at 0400. On 0800 patient rounds, pt alert and oriented. Bed in low position and locked, side rails up x 2, call sharpe within reach. Will continue to monitor.
[2016-12-02] MEDS: GABAPENTIN 400 MG CAPSULE PO SCH (09:21)
[2016-12-02] MEDS: buPROPion XL 150 MG TAB.SR.24H PO SCH (09:21)
[2016-12-02] MEDS: LORAZEPAM 1 MG TABLET PO SCH (09:22)
[2016-12-02] MEDS: FOLIC ACID 1 MG TABLET PO SCH (09:22)
[2016-12-02] MEDS: THIAMINE HCL 100 MG TABLET PO SCH (09:22)
[2016-12-02] MEDS: MULTIVITAMINS,THERAPEUTIC TABLET PO SCH (09:22)
--- NOTE | 2016-12-02 09:48 | NUR ---
CIWA ASSEMBLER HYDRAULIC BACKHOE assessment with CIWA 20. Dr. Olivares notified. Dr. Olivares requested special agent in charge to assess CIWA. Charge nurse assess CIWA as 8. notified.
--- NOTE | 2016-12-02 10:10 | NUR ---
CIWA REASSESSMENT JOSE 8 per charge nurse assessment, notified.
[2016-12-02 12:00] VITALS: BP 116/74
[2016-12-02] MEDS: BENZOCAINE/MENTH/CETYLPYRD LOZENGE MM PRN (13:09)
[2016-12-02] MEDS: GUAIFENESIN/DEXTROMETHORPHAN 5 ML UDC PO PRN (13:09)
[2016-12-02] MEDS: ACETAMINOPHEN 325 MG TABLET PO PRN (13:10)
[2016-12-02] MEDS: CLONIDINE HCL 0.1 MG TABLET PO PRN (13:10)
[2016-12-02] MEDS: METHOCARBAMOL 750 MG TABLET PO PRN (13:10)
--- NOTE | 2016-12-02 13:10 | NUR ---
PRN MEDICATION ADMINISTRATION Pt states he has a cold with sore throat, body aches, cough. Given Tylenol, robaxin, robitussin syrup, and cepacol lozenges. Also reports anxiety. Given Clonidine PRN.
[2016-12-02] MEDS ORDERED: HYDROXYZINE PAMOATE 25 MG CAPSULE PO PRN (13:30)
[2016-12-02] MEDS ORDERED: CLON0.1T14 PO (13:43)
[2016-12-02] MEDS ORDERED: METH-406 PO (13:43)
[2016-12-02] MEDS ORDERED: DICY20TA28 PO (13:43)
[2016-12-02] MEDS ORDERED: NICO4GUM38 BC (13:43)
[2016-12-02] MEDS ORDERED: QUET200T PO (13:43)
[2016-12-02] MEDS ORDERED: GABA-534 PO (13:43)
[2016-12-02] MEDS ORDERED: BUPR-96 PO (13:43)
[2016-12-02] MEDS ORDERED: DIPH50CA37 PO (13:43)
[2016-12-02] MEDS ORDERED: HYDR-3895 PO (13:43)
--- NOTE | 2016-12-02 14:10 | NUR ---
PRN MEDICATION REASSESSMENT 1409, pt reports sore throat, cough and body aches relieved. Continues to report anxiety, but states Dr. Olivares stated he will receive and additional ativan today so does not want any other PRN medications. RN notified pt that Ativan has not been ordered at this time. Anticipating discharge tomorrow.
[2016-12-02] MEDS: GABAPENTIN 300 MG CAPSULE PO SCH ×2 (15:33→20:07)
[2016-12-02] MEDS: CLONIDINE HCL 0.1 MG TABLET PO SCH ×2 (15:34→20:07)
[2016-12-02 16:30] VITALS: BP 102/69
--- NOTE | 2016-12-02 19:36 | NUR ---
END OF SHIFT NOTE 31 year old male admitted 11/26/16 for ETOH substance abuse. ON 5 day ativan taper. NKA. Reg diet, full code. Hx anxiety, depression, Bipolar disorder. No history of seizure. At 0948, technical project coordinator with CIWA 20. Dr. Olivares notified. Dr. Olivares requested hemodialysis charge nurse to assess CIWA. Charge nurse assess CIWA as 8. MD notified. At 1200 and at 1730, CIWA 8. Appetite good with consumption 100 percent for all meals. Fluid intake 1500 mls. At 1310, pt states he has a cold with sore throat, body aches, cough. Given Tylenol, robaxin, robitussin syrup, and cepacol lozenges. Also reports anxiety. Given Clonidine PRN. 1410, pt reports sore throat, cough and body aches relieved. Continues to report anxiety, but states Dr. Olivares stated he will receive and additional ativan today so does not want any other PRN medications. RN notified pt that Ativan has not been ordered at this time. Anticipating discharge tomorrow. At 1730, pt reports anxiety but refused Vistaril PRN. Report given to night RN. Bed in low position and locked, side rails up x 2, call sharpe within reach.
--- NOTE | 2016-12-02 19:36 | NUR ---
START OF SHIFT NOTE Patient is a 31 year old male admitted to [facility] on 12/17/2016 for Alcohol dependence, completed 5 Day Ativan Taper with tolerated well without ASE. Patient remains compliant with treatment plan, medications, and diet regime. Patient reports NKA. Patient is on Full Code, Regular Diet, Fall and Seizures Precautions. Patient denies a history of withdrawal-induced seizures. PMH: Anxiety, Depression, Bipolar Disorder, Alcohol use disorder, Chronic Tobacco Use Disorder. Past Surgical History: Tonsillectomy in 2003. Upon endorsement patient is in his room alert and oriented x4, with stable gate. Speech is clear and soft. Patient is cooperative. CIWA 7. VS: T: 98.3; BP: 118/71; HR: 102; RR:14; RA O2 SAT: 98%, pain level: "0/10". Patient denies SI/HI. Respirations unlabored and even. Patient denies SOB and chest pain. Lungs Sounds are clear bilaterally. Bowel Sounds active in all x4 quadrants. Abdomen is soft and non-tender. PERRLA, brisk capillary refill, cna hospice equal and strong. Skin is intact, warm and dry to touch. Encourage fluids as tolerated. Encourage to attend activities groups. All needs met. Safety measures on place. Call light within reach, bed in lowest position and locked, padded rails up bilaterally rails up bilaterally. Patient endorsed by day shift nurse. Report received. Will continue to monitor closely.
[2016-12-02 20:00] VITALS: BP 118/71
[2016-12-02] MEDS: QUETIAPINE FUMARATE 200 MG TABLET PO SCH (20:07)
[2016-12-03] VITALS: BP 106/60
[2016-12-03 04:00] VITALS: BP 108/62
--- NOTE | 2016-12-03 07:08 | NUR ---
END OF SHIFT NOTE: Patient is a 31 year old male admitted to [facility] on 12/17/2016 for Alcohol dependence. Patient completed 5 day Ativan Taper. Patient tolerated well without ASE. Patient remains compliant with treatment plan, medications, and diet regime. Patient reports NKA. Patient is on Full Code, Regular Diet, Fall and Seizures Precautions. Patient denies a history of withdrawal-induced seizures. PMH: Anxiety, Depression, Bipolar Disorder, Alcohol use disorder, Chronic Tobacco Use Disorder. Past Surgical History: Tonsillectomy in 2003. Last CIWA 5 @0400. CIWA taken when patient's alert during the night. Last VS @0400: T:97.7; BP:108/62; HR:96; RR:18;RA O2 SAT: 96%. Pain level: "0/10". Patient denies SI/HI. Respirations unlabored and even. Abdomen is soft and non-tender. Skin is intact, warm and dry to touch. No PRN Medications given last night. Patient slept 4 hours 30 minutes, intake 796 ml, voided x1, stool x1. Encourage fluids as tolerated. Patient scheduled for discharging today, 12/03/2016. All needs met. Safety measures on place. Call light within reach, bed in lowest position and locked, padded rails up bilaterally. Patient endorsed to day shift nurse.
--- NOTE | 2016-12-03 07:30 | NUR ---
START OF SHIFT Received report from pit hand nurse. 31 year old male patient admitted on 11/26/16 for ETOH dependence. Pt has completed 5 day Ativan taper and is medically cleared for discharge. Most recent CIWA is 5. No PRN medications needed or administered. V/S remain WNL. Pt states he is ready for discharge. Does not present with acute s/s of withdrawals. All needs met at this time. Will continue to monitor.
[2016-12-03 08:08] VITALS: BP 107/63
[2016-12-03 09:00] VITALS: BP 107/63
[2016-12-03] MEDS: GABAPENTIN 300 MG CAPSULE PO SCH (09:00)
[2016-12-03] MEDS: FOLIC ACID 1 MG TABLET PO SCH (09:00)
[2016-12-03] MEDS: THIAMINE HCL 100 MG TABLET PO SCH (09:00)
[2016-12-03] MEDS: CLONIDINE HCL 0.1 MG TABLET PO SCH (09:00)
[2016-12-03] MEDS: buPROPion XL 150 MG TAB.SR.24H PO SCH (09:00)
[2016-12-03] MEDS: MULTIVITAMINS,THERAPEUTIC TABLET PO SCH (09:00)
--- NOTE | 2016-12-03 09:30 | NUR ---
D/C NOTE Pt is A/O x4. V/S remain WNL. Pt denies SI/HI or hallucinations. Pt shows no s/s of acute withdrawal at this time, and is stable. has medically cleared pt for d/c . Education on Hepatitis C, smoking cessation and medication side effects provided. Pt verbalizes understanding. All pt belongings are in belonging bag, including prescriptions, and home medications. Refuses PNU vaccination and 0900 scheduled meds. Pt is being accompanied by SEAT COVER MAKER at this time to be transported to rehab. All needs met. Addendum: 12/03/16 at 0937 by LUIS ENRIQUE SALEEM RN incorrect patient, 0900 medications administered as ordered.
== END 2016-12-03 09:30 | disposition other institution (70) | DRG 895 ==
LOC: SRC 17:54
PROVIDERS: ADMIT Internal Medicine; ATTEND Internal Medicine
PROC: HZ2ZZZZ Detoxification Services for Substance Abuse Treatment (ICD-10-PCS; principal; 2016-11-26)
PROC: HZ31ZZZ Individual Counseling for Substance Abuse Treatment, Behavioral (ICD-10-PCS; 2016-11-28)
PROC: HZ41ZZZ Group Counseling for Substance Abuse Treatment, Behavioral (ICD-10-PCS; 2016-11-29)
DX: F10.232 Alcohol dependence with withdrawal with perceptual disturbance (principal); F31.60 Bipolar disorder, current episode mixed, unspecified; I15.9 Secondary hypertension, unspecified; F17.210 Nicotine dependence, cigarettes, uncomplicated; Y90.9 Presence of alcohol in blood, level not specified; Z81.8 Family history of other mental and behavioral disorders; F41.9 Anxiety disorder, unspecified; F11.10 Opioid abuse, uncomplicated; G47.00 Insomnia, unspecified; J20.8 Acute bronchitis due to other specified organisms; R73.9 Hyperglycemia, unspecified
CPT/HCPCS: 36415; 70030-TC; 80307; 80361; 83735; 85025; 86580; 86592; 86705; 86803; 87340; 87806; A4663; G0480; J3411; Q0162; Q0163

== ENCOUNTER 2017-01-14 20:53 | Inpatient (IN) | payer BC, OTHER ==
[~2017-01-14] VITALS: Ht 188 cm; Wt 90.7 kg
[~2017-01-14 20:53] MED LIST: BUPR-96 PO; BUPR300T52 PO; CLON0.1T14 PO; DICY20TA28 PO; DIPH50CA37 PO; GABA-534 PO; HYDR-3895 PO; METH-406 PO; NICO4GUM38 BC; QUET200T PO
[2017-01-14 21:39] VITALS: BP 113/77
[2017-01-14] MEDS ORDERED: IBUPROFEN 600 MG TABLET PO PRN (22:00)
[2017-01-14] MEDS ORDERED: LOPERAMIDE HCL 2 MG CAPSULE PO PRN ×2 (22:00)
[2017-01-14] MEDS ORDERED: MIRALAX 17 GM POWD.PACK PO PRN (22:00)
[2017-01-14] MEDS ORDERED: ONDANSETRON ODT 4 MG TAB.RAPDIS SL PRN (22:00)
[2017-01-14] MEDS ORDERED: LORAZEPAM 1 MG TABLET PO PRN (22:00)
[2017-01-14] MEDS ORDERED: CLONIDINE HCL 0.1 MG TABLET PO PRN (22:00)
[2017-01-14] MEDS ORDERED: ACETAMINOPHEN 325 MG TABLET PO PRN (22:00)
[2017-01-14] MEDS ORDERED: diphenhydrAMINE 50 MG CAPSULE PO PRN (22:00)
[2017-01-14] MEDS ORDERED: MAG HYDROX/AL HYDROX/SIMETH 30 ML LIQUID UDC PO PRN (22:00)
[2017-01-14] MEDS ORDERED: ONDANSETRON 4 MG/2 ML VIAL IM PRN (22:00)
[2017-01-14] MEDS ORDERED: DICYCLOMINE HCL 20 MG TABLET PO PRN (22:00)
[2017-01-14] MEDS ORDERED: THIAMINE HCL 200 MG/2 ML VIAL IM ONE (22:00)
[2017-01-14] MEDS ORDERED: LORAZEPAM 2 MG/1 ML VIAL IM PRN (22:00)
[2017-01-14] MEDS ORDERED: MAGNESIUM HYDROXIDE 30 ML LIQUID UDC PO PRN (22:00)
[2017-01-14 22:19] LABS: *AMPHETAMINE, URINE NEGATIVE (NEGATIVE); *BARBITURATE, URINE NEGATIVE (NEGATIVE); *CANNABINOID, URINE NEGATIVE (NEGATIVE); *COCCAINE, URINE NEGATIVE (NEGATIVE); *OPIATE, URINE NEGATIVE (NEGATIVE); *PHENCYCLIDINE SCREEN,URINE NEGATIVE (NEGATIVE)
[2017-01-14] MEDS: LORAZEPAM 1 MG TABLET PO PRN (22:45)
[2017-01-14] MEDS ORDERED: THIAMINE HCL 200 MG/2 ML VIAL ONE (22:57)
[2017-01-14] MEDS ORDERED: LORAZEPAM 1 MG TABLET ONE (22:58)
[2017-01-14 23:42] LABS: BASOPHILS # (AUTO) 0.1 K/uL (0.0-8.0); BASOPHILS % (AUTO) 0.7 % (0.0-2.0); EOSINOPHILS # (AUTO) 0.1 K/uL (0.0-0.7); EOSINOPHILS % (AUTO) 1.7 % (0.0-7.0); HEMATOCRIT 42.2 % (40-50); HEMOGLOBIN 14.3 G/DL (14.0-18.0); LYMPHOCYTES # (AUTO) 2.9 K/UL (0.8-4.8); LYMPHOCYTES % (AUTO) 35.8 % (20.5-51.5); MEAN CORPUSCULAR HEMOGLOBIN 29.1 UUG (27.0-31.0); MEAN CORPUSCULAR HGB CONC 34 g/dL (32.0-37.0); MEAN CORPUSCULAR VOLUME 85.9 FL (82.0-92.0); MONOCYTES # (AUTO) 0.7 K/UL (0.1-1.30); MONOCYTES % (AUTO) 8.8 % (0.0-11.0); NEUTROPHILS # (AUTO) 4.3 K/UL (1.8-8.9); PLATELET COUNT (AUTO) 235 K/UL (150-450); RED BLOOD CELL COUNT(AUTO) 4.91 MIL/UL (4.7-6.1); WHITE BLOOD COUNT (AUTO) 8.1 K/UL (4.0-11.2)
[2017-01-14 23:52] LABS: BILIRUBIN,TOTAL 0.2 mg/dL (0.2-1.0); MAGNESIUM 2.1 mg/dL (1.8-2.4); POTASSIUM 3.8 mmol/L (3.5-5.1); TOTAL PROTEIN, SERUM 6.7 g/dL (6.4-8.2)
[2017-01-15] VITALS: BP 115/59
[2017-01-15] MEDS ORDERED: LAMO100T2 GT (01:04)
[2017-01-15 04:00] VITALS: BP 90/54
[2017-01-15 08:00] VITALS: BP 112/62
[2017-01-15] MEDS: MULTIVITAMINS,THERAPEUTIC TABLET PO SCH (08:44)
[2017-01-15] MEDS: GABAPENTIN 300 MG CAPSULE PO SCH ×3 (08:44→20:36)
[2017-01-15] MEDS: LORAZEPAM 1 MG TABLET PO PRN (08:44)
[2017-01-15] MEDS: THIAMINE HCL 100 MG TABLET PO SCH (08:45)
[2017-01-15] MEDS: FOLIC ACID 1 MG TABLET PO SCH (08:45)
[2017-01-15] MEDS ORDERED: TUBERCULIN,PURIF.PROT.DERIV. 5 TU/0.1 ML TEST ID ONE (09:00)
[2017-01-15] MEDS: LAMOTRIGINE 100 MG TABLET PO SCH (11:58)
[2017-01-15 12:49] VITALS: BP_SYST 55
[2017-01-15] MEDS ORDERED: GABA-534 PO (15:27)
[2017-01-15] MEDS ORDERED: CLON0.1T14 PO (15:27)
[2017-01-15] MEDS ORDERED: IBUP-1955 PO (15:27)
[2017-01-15 16:00] VITALS: BP 114/63
[2017-01-15 20:00] VITALS: BP 108/82
[2017-01-15] MEDS ORDERED: QUETIAPINE FUMARATE 200 MG TABLET PO SCH (21:00)
[2017-01-16] VITALS: BP 124/62
[2017-01-16 08:00] VITALS: BP 114/60
[2017-01-16] MEDS: MULTIVITAMINS,THERAPEUTIC TABLET PO SCH (08:26)
[2017-01-16] MEDS: GABAPENTIN 300 MG CAPSULE PO SCH (08:26)
[2017-01-16] MEDS: LAMOTRIGINE 100 MG TABLET PO SCH (08:26)
[2017-01-16] MEDS: THIAMINE HCL 100 MG TABLET PO SCH (08:26)
[2017-01-16] MEDS: FOLIC ACID 1 MG TABLET PO SCH (08:26)
[2017-01-17 05:06] LABS: HEPATITIS B SURFACE AG Negative (Negative)
== END 2017-01-16 09:30 | disposition other institution (70) | DRG 895 ==
LOC: SRC 20:53
PROVIDERS: ADMIT Internal Medicine; ATTEND Internal Medicine
PROC: HZ2ZZZZ Detoxification Services for Substance Abuse Treatment (ICD-10-PCS; principal; 2017-01-14)
PROC: HZ31ZZZ Individual Counseling for Substance Abuse Treatment, Behavioral (ICD-10-PCS; 2017-01-15)
DX: F10.230 Alcohol dependence with withdrawal, uncomplicated (principal); F31.30 Bipolar disorder, current episode depressed, mild or moderate severity, unspecified; F11.21 Opioid dependence, in remission; Y90.6 Blood alcohol level of 120-199 mg/100 ml; F17.210 Nicotine dependence, cigarettes, uncomplicated; F41.9 Anxiety disorder, unspecified; Z81.8 Family history of other mental and behavioral disorders; R73.9 Hyperglycemia, unspecified
CPT/HCPCS: 36415; 80307; 83735; 85025; 86592; 86705; 86803; 87340; 87806; A4663; G0480; J3411

== ENCOUNTER 2017-02-02 16:19 | Inpatient (IN) | payer BC, OTHER ==
[~2017-02-02] VITALS: Ht 188 cm; Wt 90.7 kg
[~2017-02-02 16:19] MED LIST changes: -BUPR-96 PO; -BUPR300T52 PO; -DICY20TA28 PO; -DIPH50CA37 PO; -HYDR-3895 PO; +IBUP-1955 PO; +LAMO100T2 GT; -METH-406 PO
[2017-02-02 18:49] VITALS: BP 132/79
[2017-02-02] MEDS ORDERED: DICYCLOMINE HCL 20 MG TABLET PO PRN (19:00)
[2017-02-02] MEDS ORDERED: ONDANSETRON 4 MG/2 ML VIAL IM PRN (19:00)
[2017-02-02] MEDS ORDERED: LORAZEPAM 2 MG/1 ML VIAL IM PRN (19:00)
[2017-02-02] MEDS ORDERED: ACETAMINOPHEN 325 MG TABLET PO PRN (19:00)
[2017-02-02] MEDS ORDERED: LORAZEPAM 1 MG TABLET PO PRN ×2 (19:00)
[2017-02-02] MEDS ORDERED: ONDANSETRON ODT 4 MG TAB.RAPDIS SL PRN (19:00)
[2017-02-02] MEDS ORDERED: MAG HYDROX/AL HYDROX/SIMETH 30 ML LIQUID UDC PO PRN (19:00)
[2017-02-02] MEDS ORDERED: CLONIDINE HCL 0.1 MG TABLET PO PRN (19:00)
[2017-02-02] MEDS ORDERED: LOPERAMIDE HCL 2 MG CAPSULE PO PRN ×2 (19:00)
[2017-02-02] MEDS ORDERED: IBUPROFEN 400 MG TABLET PO PRN (19:00)
[2017-02-02] MEDS ORDERED: MIRALAX 17 GM POWD.PACK PO PRN (19:00)
[2017-02-02] MEDS ORDERED: diphenhydrAMINE 50 MG CAPSULE PO PRN (19:00)
[2017-02-02] MEDS ORDERED: THIAMINE HCL 200 MG/2 ML VIAL IM ONE (19:00)
--- NOTE | 2017-02-02 19:03 | NUR ---
PRE-ADMISSION NOTE Pt arrived on unit at 1830 accompanied by staff. Pt noted to ambulate with a steady gait. Skin is intact. V/S are as followed:98.2, HR is 105, SpO2 is 97% room air, B/P is 132/79, denies pain at this time. Pt has poor eye contact, appears restless, and is odorous of alcohol. Pt reports he is here to detox from ETOH, pt states he drinks 2 pints of Vodka daily for the past 2 weeks. Pt reports he was in [facility] where he left AMA 3 days ago. Denies hx of seizures. Hx of anxiety and bipolar. Urine provided, awaiting on results. energy efficiency specialist nurse to resume care of patient and complete admission. Safety measures are in place.
--- NOTE | 2017-02-02 19:30 | NUR ---
ADMISSION NOTE Patient is a 31 y/o male admitted on 02/02/17 for ETOH dependence, arrived on the unit at 1830. Pt has NKA, denies history of seizures. Pt was able to provide UDS. Upon admission CIWA 10, BP: 132/79, P: 105, R: 18, O2: 97%, T: 98.2, PA: 0/10. Height: 62 weight: 200 lbs. Pt reports he does not have a PCP, smokes about 10 cigarettes a day. Pt is able to understand and respond to all questions pertaining to his hospitalization. Substance Abuse History is as follows: 1. Vodka, 2 pints daily at this rate for the last 2 weeks. Last intake was 02/02/17, of 2 pints. Pts longest sober period for 3 months in 2011. Patient has been to rehab 3 times and detox several times. Most recently, patient left [facility] ago. Patient was at [facility] in December of 2016. Patient denies history of substance abuse within his immediate family. PMH: Anxiety and bipolar disorder, and tonsillectomy. Pt denies any hx of seizures. Pt did not bring any medications from home. Upon assessment, pt is alert and oriented x4, mildly intoxicated, and presents with anxiety. Respirations are even and unlabored. Patient denies SOB, chest pain, N/V/D. Bowel sounds active x 4, abdomen soft and non-tender. PERRLA. Skin intact, no open wounds noted. Pt denies SI/HI. Educational information provided and left at bedside. Pt oriented to room and encouraged to notify staff with any concerns. Fall and seizure precautions, safety measures in place. Call light within reach, side rails up x 2, bed locked and in low position. Will continue to monitor.
[2017-02-02 19:39] LABS: BASOPHILS % (AUTO) 0.4 % (0.0-2.0); EOSINOPHILS # (AUTO) 0.1 K/uL (0.0-0.7); EOSINOPHILS % (AUTO) 0.7 % (0.0-7.0); HEMATOCRIT 41.8 % (36.7-47.1); HEMOGLOBIN 14.9 g/dL (12.5-16.3); LYMPHOCYTES # (AUTO) 3.7 K/uL (20.0-40.0); LYMPHOCYTES % (AUTO) 38.2 % (20.5-51.5); MEAN CORPUSCULAR HEMOGLOBIN 30.6 uug (23.8-33.4); MEAN CORPUSCULAR HGB CONC 36 g/dL (32.5-36.3); MONOCYTES # (AUTO) 0.8 K/uL (2.0-10.0); MONOCYTES % (AUTO) 8.4 % (0.0-11.0); NEUTROPHILS # (AUTO) 5.1 K/uL (1.8-8.9); NEUTROPHILS % (AUTO) 52.3 % (38.5-71.5); PLATELET COUNT (AUTO) 228 K/uL (152-348); RED BLOOD CELL COUNT(AUTO) 4.86 MIL/uL (4.06-5.63); WHITE BLOOD COUNT (AUTO) 9.8 K/uL (3.6-10.2)
[2017-02-02 19:55] LABS: BILIRUBIN,TOTAL 0.3 mg/dL (0.2-1.0); POTASSIUM 3.7 mmol/L (3.5-5.1); TOTAL PROTEIN, SERUM 7.2 g/dL (6.4-8.2)
[2017-02-02 20:00] VITALS: BP 132/79
[2017-02-02 20:23] LABS: *AMPHETAMINE, URINE NEGATIVE (NEGATIVE); *BARBITURATE, URINE NEGATIVE (NEGATIVE); *CANNABINOID, URINE NEGATIVE (NEGATIVE); *COCCAINE, URINE NEGATIVE (NEGATIVE); *OPIATE, URINE NEGATIVE (NEGATIVE); *PHENCYCLIDINE SCREEN,URINE NEGATIVE (NEGATIVE)
--- NOTE | 2017-02-02 20:39 | NUR ---
PRN MAALOX Patient reports heartburn. PRN Maalox given for heartburn. Patient's respirations even and unlabored. Safety measures in place. Will reassess in one hour.
[2017-02-02] MEDS ORDERED: LORAZEPAM 1 MG TABLET PO ONE (21:00)
--- NOTE | 2017-02-02 21:39 | NUR ---
PRN MAALOX REASSESSMENT Patient reports that heartburn has improved. PRN Maalox effective. Patient's respirations even and unlabored, safety measures in place, call light within reach. Will continue to monitor.
[2017-02-03] VITALS: BP 88/42
--- NOTE | 2017-02-03 | NUR ---
MIDNIGHT CIWA DEFERRED Midnight CIWA deferred due to patient asleep; to be assessed and scored while awake per protocol. Patient's respirations are 16/min, even and unlabored. Safety measures in place, bed locked in low position, side rails up x2, call light within reach. Will continue to monitor.
--- NOTE | 2017-02-03 04:00 | NUR ---
4AM VITALS REFUSED, CIWA DEFERRED 4AM vitals signs refused, CIWA deferred due to patient asleep; to be assessed and scored while awake per protocol. Patient's respirations are 16/min, even and unlabored. Safety measures in place, bed locked in low position, side rails up x2, call light within reach. Will continue to monitor.
--- NOTE | 2017-02-03 07:00 | NUR ---
END OF SHIFT Patient is a 31-year-old male admitted on 02/02/17 for ETOH dependence and withdrawal. Patient has anxiety, bipolar disorder, and past history of MRSA. Patient is NKA, on a regular diet, FULL code. No taper has been ordered yet. Patient slept for 8 hours, total intake of 850 mL, void x3, stool x1. Patient received PRN Maalox for heartburn, pt states it was effective. Last CIWA was 10. Patient is on fall and seizure precautions, safety measures in place, bed locked in low position, side rails up x2, call light within reach. Will endorse to day shift.
--- NOTE | 2017-02-03 07:50 | NUR ---
Start of shift note; Received report from night nurse. Patient is a 31 year old male admitted on 02/02/17 for ETOH dependence. Patient has a history of bipolar disorder, anxiety and history of MRSA. Patient is on full code status, regular diet and NKA. Patient is on full code status, on regular diet, NKA. Patient to be evaluated for Taper orders today. Patient's last CIWA is 10 per endorsement. Patient is on fall and seizure precaution. Bed in lowest position, call light within reach. Will continue to monitor patient.
[2017-02-03 08:00] VITALS: BP 126/63
[2017-02-03] MEDS: FOLIC ACID 1 MG TABLET PO SCH (08:23)
[2017-02-03] MEDS: THIAMINE HCL 100 MG TABLET PO SCH (08:23)
--- NOTE | 2017-02-03 08:36 | NUR ---
PRN medication; Patient is showing obvious signs and symptoms of withdrawals, manifested by fine tremors, anxiety, flushed face, sweats, agitation with current CIWA score of 7 given as per MD order. Will continue to monitor patient for effectiveness of medication.
[2017-02-03] MEDS: MULTIVITAMINS,THERAPEUTIC TABLET PO SCH (08:37)
[2017-02-03] MEDS ORDERED: TUBERCULIN,PURIF.PROT.DERIV. 5 TU/0.1 ML TEST ID ONE (09:00)
[2017-02-03] MEDS ORDERED: PNEUMOCOCCAL 23-VAL P-SAC VAC 0.5 ML VIAL IM ONE (09:00)
--- NOTE | 2017-02-03 09:36 | NUR ---
Re-assessment; Patient's current CIWA score is 5. PRN Medication noted to be effective.
[2017-02-03 12:00] VITALS: BP 132/72
[2017-02-03] MEDS ORDERED: NICOTINE POLACRILEX 4 MG GUM-PK OF TEN BC PRN (12:15)
[2017-02-03] MEDS: LORAZEPAM 1 MG TABLET PO SCH ×3 (12:48→20:09)
[2017-02-03 16:00] VITALS: BP 120/76
--- NOTE | 2017-02-03 18:03 | NUR ---
End of shift note; Patient is AOX4. Patient is a 31 year old male admitted on 02/02/17 for ETOH dependence. Patient has a history of bipolar disorder, anxiety and history of MRSA. Patient is on full code status, regular diet and NKA. Patient is on full code status, on regular diet, NKA. Patient was started on Ativan taper. Patient's last CIWA is 6 at 1600. Patient is on fall and seizure precaution. Patient remained compliant with treatment plan and medication regime. Met all needs.
[2017-02-03 20:00] VITALS: BP 123/72
--- NOTE | 2017-02-03 20:00 | NUR ---
Start of Shift Pt is a 31 year old male admitted for ETOH dependence, placed on 3 day Ativan taper. Pt reported using Vodka 2 pints/daily. PMH: bipolar and anxiety. NKA, regular diet, fall/seizure precautions and full code. Upon assessment, pt is reports anxiety, is in emotional distress, tremulous, skin is clammy/flushed, chills and pins/needles, respirations even/unlabored, denies SOB/chest pain, denies n/v/d, medications due. Safety measures in place, call light within reach, side rails up x2, bed locked and in low position. Will continue to monitor.
[2017-02-03] MEDS: GABAPENTIN 300 MG CAPSULE PO SCH (20:09)
[2017-02-03] MEDS: LAMOTRIGINE 100 MG TABLET PO SCH (20:09)
[2017-02-04] VITALS: BP 121/78
[2017-02-04 04:00] VITALS: BP 107/62
--- NOTE | 2017-02-04 04:00 | NUR ---
CIWA deferred d/t pt sleeping to assess while pt is awake as ordered. BP 107/62, pulse 85, resp 16, SpO2 98% room air, temp 98.[address], will continue to monitor.
--- NOTE | 2017-02-04 07:10 | NUR ---
End of Shift Pt is a 31 year old male admitted for ETOH dependence, placed on 3 day Ativan taper. Pt reported using Vodka 2 pints/daily. PMH: bipolar and anxiety. NKA, regular diet, fall/seizure precautions and full code. During shift, pt presented with anxiety, was in emotional distress, tremulous, skin clammy/flushed, chills and pins/needles scheduled taper medications administered, effective in management o f s/s of withdrawal, CIWA 6. No PRN medications administered during shift. Pt slept for 8 hours, intake of 1200 ml PO, voids x2 and stool x0. Safety measures in place, call light within reach, side rails up x2, bed locked and in low position. Endorsed to day shift nurse.
--- NOTE | 2017-02-04 07:20 | NUR ---
Start of shift note; Received report from night nurse. Patient is a 31 year old male admitted on 02/02/17 for ETOH dependence. Patient has a history of bipolar disorder, anxiety and history of MRSA. Patient is on full code status, regular diet and NKA. Patient is on full code status, on regular diet, NKA. Patient was placed on Ativan taper. Patient's last CIWA is 6 per endorsement. Patient slept for 8 hours.Patient is on fall and seizure precaution. Bed in lowest position, call light within reach. Will continue to monitor patient.
[2017-02-04 08:00] VITALS: BP 130/84
[2017-02-04 08:51] LABS: HEPATITIS B SURFACE AG Negative (Negative)
[2017-02-04] MEDS: FOLIC ACID 1 MG TABLET PO SCH (09:00)
[2017-02-04] MEDS: GABAPENTIN 300 MG CAPSULE PO SCH ×2 (09:00→14:08)
[2017-02-04] MEDS: THIAMINE HCL 100 MG TABLET PO SCH (09:00)
[2017-02-04] MEDS ORDERED: LORAZEPAM 1 MG TABLET PO SCH (09:00)
[2017-02-04] MEDS: MULTIVITAMINS,THERAPEUTIC TABLET PO SCH (09:00)
[2017-02-04 12:00] VITALS: BP 126/88
[2017-02-04] MEDS: LORAZEPAM 1 MG TABLET PO SCH ×3 (12:50→20:15)
[2017-02-04 16:00] VITALS: BP 123/71
--- NOTE | 2017-02-04 18:17 | NUR ---
End of shift note; Patient is AOX4. Patient is a 31 year old male admitted on 02/02/17 for ETOH dependence. Patient has a history of bipolar disorder, anxiety and history of MRSA. Patient is on full code status, regular diet and NKA. Patient is on full code status, on regular diet, NKA. Patient was placed on Ativan taper, no adverse reactions noted. Patient is on fall and seizure precaution. Patient remained compliant with treatment plan and medication regime. All safety measures secured. Met all needs.
--- NOTE | 2017-02-04 19:10 | NUR ---
Start of shift note Received report from day shift nurse. Pt is a 31 yo male, A+Ox4, presenting to [facility] for ETOH dependence. Pt has NKA, is on Full code status, and on Regular diet. Pt is on Fall and Seizure precautions. Pt has HX of Bipolar, Anxiety, and MRSA. Pt is on modified Ativan taper, tolerated well. No s/s of distress noted at this time. Respirations even and unlabored. Will continue to monitor.
[2017-02-04 20:05] VITALS: BP 136/81
[2017-02-04] MEDS: LAMOTRIGINE 100 MG TABLET PO SCH (20:15)
[2017-02-04] MEDS: PROPRANOLOL HCL 20 MG TABLET PO SCH (20:16)
[2017-02-04] MEDS ORDERED: QUETIAPINE FUMARATE 100 MG TABLET PO SCH (21:00)
[2017-02-04] MEDS ORDERED: GABAPENTIN 300 MG CAPSULE PO SCH (21:00)
[2017-02-05 00:18] VITALS: BP 131/77
[2017-02-05 04:22] VITALS: BP 115/66
--- NOTE | 2017-02-05 06:51 | NUR ---
End of shift note Pt is a 31 yo male, A+Ox4, presenting to [facility] for ETOH dependence. Pt has NKA, is on Full code status, and on Regular diet. Pt is on Fall and Seizure precautions. Pt has HX of Bipolar, Anxiety, and MRSA. Pt is on modified Ativan taper, tolerated well. Pt slept for a total of 9 HRS. Last CIWA: 3 @0400. No s/s of distress noted at this time. Respirations even and unlabored. Will endorse to day shift nurse.
--- NOTE | 2017-02-05 07:11 | NUR ---
Start of Shift Notes: Received endorsement from night nurse. Patient received in his room. Alert and oriented x 4. Verbally responsive. Able to make needs known. Respirations even and unlabored. No SOB noted. Skin warm and moist to touch. Abdomen soft and non-distended with (+) BS in all 4 quadrants. No complains of N/V/D or constipation noted. Bladder non-distended. No complains of dysuria noted. Patient is a 31 year old male admitted for ETOH dependence who was placed on a modified Ativan taper as ordered. No adverse reactions noted. Has past medical hx of biplar disorder, anxiety, and hx of MRSA. NKA. FULL CODE. Regular diet. On fall and seizure precautions. Educated patient on his current plan of care for the day and his medication regimen. Encouraged oral fluid intake and encouraged group participation to learn new skills to prevent relapse. Will continue to monitor.
[2017-02-05 08:00] VITALS: BP_SYST 119; BP_SYST 132; BP_DIAS 66; BP_DIAS 87
[2017-02-05] MEDS: LORAZEPAM 1 MG TABLET PO SCH ×3 (08:42→20:15)
[2017-02-05] MEDS: GABAPENTIN 300 MG CAPSULE PO SCH ×3 (08:42→20:15)
[2017-02-05] MEDS: THIAMINE HCL 100 MG TABLET PO SCH (08:42)
[2017-02-05] MEDS: MULTIVITAMINS,THERAPEUTIC TABLET PO SCH (08:42)
[2017-02-05] MEDS: FOLIC ACID 1 MG TABLET PO SCH (08:42)
[2017-02-05] MEDS: PROPRANOLOL HCL 20 MG TABLET PO SCH ×2 (08:42→20:15)
[2017-02-05] MEDS ORDERED: LORAZEPAM 1 MG TABLET PO SCH (09:00)
[2017-02-05 12:00] VITALS: BP 127/76
[2017-02-05 16:00] VITALS: BP 134/76
--- NOTE | 2017-02-05 19:01 | NUR ---
End of Shift Notes: Continues to be on 5-day Ativan taper as ordered. No adverse reactions noted. Patient is tolerating taper well. VS monitored closely. No significant abnormalities noted. Withdrawal symptoms closely monitored. Initial CIWA 10, patient presented with moderate anxiety, agitation, tremors, fatigue, sweats, nausea, and very mild visual hallucinations m/b seeing people inside the room when he is alone. Last CIWA 4. Per patient, Ativan has been effective in reducing his withdrawal symptoms. Compliant with care and treatment. Denies S/I or H/I noted. Encouraged to attend group and activities. All needs met and attended. Will continue to monitor closely.
--- NOTE | 2017-02-05 19:11 | NUR ---
Start of shift note Received report from day shift nurse. Pt is a 31 yo male, A+Ox4, presenting to [facility] for ETOH dependence. Pt has NKA, is on Full code status, and on Regular diet. Pt is on Fall and Seizure precautions. Pt has HX of Bipolar, Anxiety, and MRSA. Pt is on modified Ativan taper, tolerated well. No s/s of distress noted at this time. Respirations even and unlabored. Will continue to monitor.
[2017-02-05] MEDS: LAMOTRIGINE 100 MG TABLET PO SCH (20:15)
[2017-02-05] MEDS: QUETIAPINE FUMARATE 100 MG TABLET PO SCH (20:15)
[2017-02-05 20:38] VITALS: BP 127/82
[2017-02-06] VITALS (7 sets, daily range): BP systolic 105–135; BP diastolic 65–96
--- NOTE | 2017-02-06 06:32 | NUR ---
End of shift note Pt is a 31 yo male, A+Ox4, presenting to [facility] for ETOH dependence. Pt has NKA, is on Full code status, and on Regular diet. Pt is on Fall and Seizure precautions. Pt has HX of Bipolar, Anxiety, and MRSA. Pt is on modified Ativan taper, tolerated well. Pt slept for a total of 8 HRS. Last CIWA: 3 @0400. No s/s of distress noted at this time. Respirations even and unlabored. Will endorse to day shift nurse.
--- NOTE | 2017-02-06 07:07 | NUR ---
Start of Shift Notes: Received endorsement from night nurse. Patient received in his room. Awake, lert and oriented x 4. Verbally responsive. Appears anxious. Redirection provided. Able to make needs known. Respirations even and unlabored. No SOB noted. Skin warm and moist to touch. Abdomen soft and non-distended with (+) BS in all 4 quadrants. No complains of N/V/D or constipation noted. Bladder non-distended. No complains of dysuria noted. Patient is a 31 year old male admitted for ETOH dependence who was placed on a modified Ativan taper as ordered. No adverse reactions noted. Has past medical hx of biplar disorder, anxiety, and hx of MRSA. NKA. FULL CODE. Regular diet. On fall and seizure precautions. Educated patient on his current plan of care for the day and his medication regimen. Encouraged oral fluid intake and encouraged group participation to learn new skills to prevent relapse. Will continue to monitor.
[2017-02-06] MEDS ORDERED: LORAZEPAM 1 MG TABLET PO SCH (09:00)
[2017-02-06] MEDS: GABAPENTIN 300 MG CAPSULE PO SCH ×3 (09:01→20:42)
[2017-02-06] MEDS: PROPRANOLOL HCL 20 MG TABLET PO SCH ×2 (09:02→20:41)
[2017-02-06] MEDS: THIAMINE HCL 100 MG TABLET PO SCH (09:02)
[2017-02-06] MEDS: FOLIC ACID 1 MG TABLET PO SCH (09:02)
[2017-02-06] MEDS: MULTIVITAMINS,THERAPEUTIC TABLET PO SCH (09:02)
[2017-02-06] MEDS ORDERED: LORAZEPAM 1 MG TABLET PO ONE (16:45)
--- NOTE | 2017-02-06 16:54 | NUR ---
Ativan 1 mg PO given: Patient noted with CIWA 7, noted with moderate anxiety, sweating, mild agitation. MD aware and ordered one time Ativan 1 mg PO as ordered. Will monitor for effectiveness.
--- NOTE | 2017-02-06 17:54 | NUR ---
Re-assessment: CIWA 4, less anxiety and less agitation noted. OT Ativan 1 mg PO effective.
--- NOTE | 2017-02-06 19:00 | NUR ---
End of Shift Notes: Patient completed his 5-day Ativan taper. No adverse reactions noted. Patient tolerated taper well. VS monitored closely. No significant abnormalities noted. Withdrawal symptoms closely monitored. Initial CIWA 6, patient presented with moderate anxiety, agitation, tremors, fatigue, and sweats. At 1654, patient's CIWA noted to increase to 7 showing moderate anxiety, agitation and sweats. MD aware and ordered 1 time Ativan 1 mg PO with help after 1 hour. Last CIWA 4. Per patient, Ativan has been effective in reducing his withdrawal symptoms. Compliant with care and treatment. Denies S/I or H/I noted. Encouraged to attend group and activities. All needs met and attended. Will continue to monitor closely.
[2017-02-06] MEDS ORDERED: PROP20TA22 PO (19:52)
[2017-02-06] MEDS ORDERED: HYDR-3895 PO (19:52)
[2017-02-06] MEDS ORDERED: GABA-534 PO (19:52)
[2017-02-06] MEDS ORDERED: LAMO100T2 PO (19:52)
[2017-02-06] MEDS ORDERED: QUET100T PO (19:52)
--- NOTE | 2017-02-06 20:00 | NUR ---
Start of Shift Pt is a 31 year old male admitted for ETOH dependence, placed on modified Ativan taper - completed. Pt reported using Vodka 2 pints/daily. PMH: bipolar and anxiety. NKA, regular diet, fall/seizure precautions and full code. Upon assessment, pt presents with anxiety, reports mild muscle aches, respirations even/unlabored, denies SOB/chest pain, denies n/v/d, medications due. Pt is scheduled for discharge tomorrow. Safety measures in place, call light within reach, side rails up x2, bed locked and in low position. Will continue to monitor.
[2017-02-06] MEDS: LAMOTRIGINE 100 MG TABLET PO SCH (20:42)
[2017-02-06] MEDS: QUETIAPINE FUMARATE 100 MG TABLET PO SCH (20:42)
[2017-02-07] VITALS: BP 122/71
--- NOTE | 2017-02-07 | NUR ---
EDITHWA deferred d/t pt sleeping, to assess while pt is awake as ordered. BP 122/71, pulse 100, resp 16, SpO2 96% room air, temp 97.[address], will continue to monitor.
--- NOTE | 2017-02-07 04:00 | NUR ---
EDITHWA deferred d/t pt sleeping, to assess while pt is awake as ordered. Pt refused to be woken up for [address] measures in [address], will continue to monitor.
--- NOTE | 2017-02-07 07:00 | NUR ---
End of Shift Pt is a 31 year old male admitted for ETOH dependence, placed on modified Ativan taper - completed. Pt reported using Vodka 2 pints/daily. PMH: bipolar and anxiety. NKA, regular diet, fall/seizure precautions and full code. During shift, pt presented with anxiety, reported mild muscle aches scheduled medications administered, CIWA 3. No PRN medications administered during shift. Pt slept for 7 hours, intake of 1092 ml PO, voids x3 and stool x3. Pt is scheduled for discharge today. Safety measures in place, call light within reach, side rails up x2, bed locked and in low position. Endorsed to day shift nurse.
--- NOTE | 2017-02-07 07:05 | NUR ---
Start of Shift Endorsement received from nightshift nurse. PT is a 31 y/o male admitted for alcohol dependence. Pt has been placed on a Modified Ativan taper. Pt has completed the taper and has been scheduled for discharge today, 02/07/17. Pt is tolerating the detox and mildly withdrawing AEB CIWA 3 at midnight. Pt did not receive any PRN medications. Pt reports sleeping 6 hours. PT is alert and oriented x4. Pt is in STABLE condition at this time. Remains compliant with medication and diet regimen. All needs have been met, All safety measures in place per hospital policy. Bed in lowest position, side rails up x2, call-light within reach. Will continue to monitor
[2017-02-07 08:00] VITALS: BP 115/71
[2017-02-07] MEDS: GABAPENTIN 300 MG CAPSULE PO SCH (08:26)
[2017-02-07] MEDS: FOLIC ACID 1 MG TABLET PO SCH (08:26)
[2017-02-07 08:28] VITALS: BP 115/71
[2017-02-07] MEDS: THIAMINE HCL 100 MG TABLET PO SCH (08:28)
[2017-02-07] MEDS: PROPRANOLOL HCL 20 MG TABLET PO SCH (08:28)
[2017-02-07] MEDS: MULTIVITAMINS,THERAPEUTIC TABLET PO SCH (08:28)
--- NOTE | 2017-02-07 09:08 | NUR ---
Discharge note PT has been discharged from [facility] PT is in Stable condition, VS WNL. Denies suicidal and homicidal ideations at this time. . All documentation has been completed, paperwork signed and dated. Pt left with all of his belongings, medications and prescriptions. Pt has been discharged from [facility] on 02/07/17 at 0908. has been Notified.
== END 2017-02-07 09:08 | disposition other institution (70) | DRG 895 ==
LOC: SRC 18:06
PROVIDERS: ADMIT Internal Medicine; ATTEND Internal Medicine
PROC: HZ2ZZZZ Detoxification Services for Substance Abuse Treatment (ICD-10-PCS; principal; 2017-02-02)
PROC: HZ41ZZZ Group Counseling for Substance Abuse Treatment, Behavioral (ICD-10-PCS; 2017-02-06)
DX: F10.230 Alcohol dependence with withdrawal, uncomplicated (principal); E87.2 Acidosis; F31.9 Bipolar disorder, unspecified; Y90.9 Presence of alcohol in blood, level not specified; F17.210 Nicotine dependence, cigarettes, uncomplicated; Z81.8 Family history of other mental and behavioral disorders; F11.21 Opioid dependence, in remission; F41.9 Anxiety disorder, unspecified; R73.9 Hyperglycemia, unspecified
CPT/HCPCS: 36415; 70030-TC; 80307; 83735; 85025; 86580; 86592; 86705; 86803; 87340; 87806; 90732; A4663; G0480; J3411